=== PATIENT | female | born 1975 | race Caucasian/White ===

== ENCOUNTER 2018-01-17 10:11 | Outpatient (CLI) | payer MEDICAID ==
--- NOTE | 2018-01-17 12:27 | ULT ---
ABDOMINAL ULTRASOUND: History: Mid abdominal pain. Patient has had a hernia repair surgery. FINDINGS: Real-time imaging of the upper abdomen was performed. This shows a normal appearing gallbladder. The common duct is 3 mm. Visualized liver parenchyma shows suggestion of some increased echogenicity comp atible with fatty change. The spleen measures 10.8 cm in length. Right and left kidneys are normal in size and not obstructed. The pancreas, abdominal aorta, and IVC regions are unremarkable. IMPRESSION: Fatty change of the liver. POS: [facility]
--- NOTE | 2018-01-17 13:11 | ULT ---
TRANSABDOMINAL AND TRANSVAGINAL PELVIC ULTRASOUND: INDICATIONS: Pelvic pain with history of hernia repair. TECHNIQUE: Angel-scale and color Doppler vascular duplex with spectral analysis was performed of the pelvis. FINDINGS: The uterus measures 11.2 x 5.4 x 5.8 cm. The endometrial stripe measures 6 mm. The right ovary measures 2.3 x 2.1 x 1.6 cm. The left ovary measures 2.3 x 1.3 x 1.4 cm. There is n ormal flow to the left ovary. Flow evaluation is difficult on the right ovary. No free fluid is evident. IMPRESSION: No acute sonographic abnormality within the pelvis. POS: [facility]
== END 2018-01-17 10:12 | disposition home or self-care (01) ==
LOC: SCSULT 10:11
PROVIDERS: ATTEND Nurse Practitioner
DX: R10.2 Pelvic and perineal pain (principal); R10.12 Left upper quadrant pain; K76.0 Fatty (change of) liver, not elsewhere classified
CPT/HCPCS: 76700; 76856

== ENCOUNTER 2018-05-30 14:33 | Outpatient (CLI) | payer MEDICAID ==
--- NOTE | 2018-05-30 16:31 | MMO ---
BILATERAL SCREENING MAMMOGRAM: Date: 05/30/18 INDICATION: Annual exam. COMPARISON: Prior exam dated 05/13/14, 02/12/13, and 09/25/11. FINDINGS: Interpretation of this exam was assisted with computer-aided detection. There are scattered fibroglandular elements bilaterally. No new suspicious mass, cluster of microcalcifications, or area of architectural distortion is eviden t. IMPRESSION: BIRADS 1: Negative Recommend routine annual mammographic screening. POS: [facility]
== END 2018-05-30 14:34 | disposition home or self-care (01) ==
LOC: SCSMAMMO 14:33
PROVIDERS: ATTEND Nurse Practitioner Family
DX: Z12.31 Encounter for screening mammogram for malignant neoplasm of breast (principal)
CPT/HCPCS: 77067

== ENCOUNTER 2022-05-07 09:13 | Emergency (ER) | payer SELFPAY ==
[2022-05-07 10:22] LABS: #Lymphocytes 2.5 thou/uL (1.20-3.40); #Monocytes 0.5 thou/uL (0.11-0.59); %Basophils 0.6 % (0.0-1.0); %Eosinophils 0.4 % (0.0-10.0); %Lymphocytes 35.3 % (21.0-51.0); %Monocytes 6.7 % (0.0-10.0); Hemoglobin 13.3 g/dL (12.0-16.0); Mean Corpuscular HGB CONC 33.8 g/dL (32.0-36.0); Mean Corpuscular Hemoglobin 30.9 pg (27.0-31.0); Mean Corpuscular Volume 91.5 fl (78.0-98.0); Platelet Count 233 10x3/uL (130-400); RBC Distribution Width 11.7 % (11.5-14.5); Red Blood Cell (RBC) Count 4.29 mill/uL (4.20-5.40)
[2022-05-07 10:35] LABS: BHCG - Serum Negative (NEGATIVE); Pregs Control Background? CLEAR/WHITE (CLR/WHITE); Pregs Control Bar Appear? YES (CONTROL BAR)
[2022-05-07 10:53] LABS: ALT (SGPT) 27 U/L (8-55); AST (SGOT) 22 U/L (5-34); Alkaline Phosphatase 66 U/L (40-110); Anion Gap 13 mmol/L (10-20); BUN (Urea Nitrogen) 15 mg/dL (7.0-18.7); Bilirubin, Total 0.4 mg/dL (0.2-1.2); Calc. Creatinine Clearance 0 mL/min (70-130); Calcium 9.1 mg/dL (7.8-10.44); Carbon Dioxide 21 mmol/L (22-29); Chloride 106 mmol/L (98-107); Estimated GFR 107; Globulin 2.9 g/dL (2.4-3.5); Glucose 93 mg/dL (70-105); Protein, Total 6.9 g/dL (6.0-8.3); Sodium 136 mmol/L (136-145)
[2022-05-07] MEDS ORDERED: Ketorolac Tromethamine 30 MG/ML VIAL ONE (13:17)
== END 2022-05-07 13:59 | disposition home or self-care (01) ==
LOC: ERS 09:13
DX: N93.9 Abnormal uterine and vaginal bleeding, unspecified (principal); R93.89 Abnormal findings on diagnostic imaging of other specified body structures; D25.9 Leiomyoma of uterus, unspecified; K21.9 Gastro-esophageal reflux disease without esophagitis
CPT/HCPCS: 36415; 76856; 80053; 84703; 85025; 96372; 99284; J1885